=== PATIENT | female | born 1980 | race Two or more races ===

== ENCOUNTER 2016-11-13 15:55 | Emergency (ER) | payer SELFPAY ==
[2016-11-13 16:01] VITALS: BP 124/84; PULSE 74; RESP 19; TEMP 97.9; O2SAT 99
[2016-11-13] MEDS ORDERED: Absorbable Gelatin Sponge Size 12-7 ONE (16:20)
--- NOTE | 2016-11-13 16:48 | ED PDOC ---
HPI: General Adult Time Seen by Provider: 11/13/16 16:38 Chief Complaint (Nursing): Abnormal Skin Integrity Chief Complaint (Provider): Abnormal Skin Integtrity History Per: Patient History/Exam Limitations: no limitations Additional Complaint(s): Pamela Munoz is a 36 year old female with no past medical history who presents to the ED with a chief complaint of a cut sustained on the thumb of her left. Reports first DIP using a veggie hillary to cut squash. Denies any active bleeding, pain or tingling. Patient was seen at urgent care but was advised to refer to the ED. Of note, patient believes her Tetanus is up to date. Past Medical History Reviewed: Historical Data, Nursing Documentation, Vital Signs Vital Signs: Last Vital Signs Temp 97.9 F 11/13/16 15:59 Pulse 74 11/13/16 15:59 Resp 19 11/13/16 15:59 BP 124/84 11/13/16 15:59 Pulse Ox 99 11/13/16 17:07 - Medical History PMH: No Chronic Diseases - Surgical History Surgical History: No Surg Hx - Family History Family History: States: Unknown Family Hx - Allergies Allergies/Adverse Reactions: Allergies Allergy/AdvReac Type Severity Reaction Status Date / Time No Known Allergies Allergy Verified 11/13/16 15:58 Review of Systems ROS Statement: Except As Marked, All Systems Reviewed And Found Negative Musculoskeletal: Negative for: Hand Pain (No pain on finger. No tingling.) Skin: Positive for: Lesions (On thumb of left hand.) Physical Exam - Reviewed Nursing Documentation Reviewed: Yes Vital Signs Reviewed: Yes - Physical Exam Appears: Positive for: Well, Non-toxic, No Acute Distress Head Exam: Positive for: ATRAUMATIC, NORMAL INSPECTION, NORMOCEPHALIC Skin: Positive for: Normal Color Eye Exam: Positive for: Normal appearance ENT: Positive for: Normal ENT Inspection Cardiovascular/Chest: Positive for: Regular Rate, Rhythm. Negative for: Murmur , Tachycardia Respiratory: Positive for: Normal Breath Sounds. Negative for: Wheezing, Respiratory Distress Extremity: Positive for: Normal ROM (Full range of motion on left hand. No pain. No tingling.), Capillary Refill (Good capillary refill.), Other (Gel foam placed on lesion prior to arrival. Bleeding has subsided. No active bleeding.) Neurologic/Psych: Positive for: Alert, Oriented - ECG O2 Sat by Pulse Oximetry: 99 (RA) Pulse Ox Interpretation: Normal Medical Decision Making Medical Decision Makin: Initial Impression: 36 year old female with a cut sustained on her finger. Initial Plan: * Gel applied to sub-secure the gel foam. * Area cleaned Patient declined Tetanus booster today. Patient was advised to not move gel foam or it will fall off'; Otherwise stable. Patient will follow up with primary medical doctor. Scribe Attestation: Documented by Cassidy Wilson acting as a scribe for Fadumo Slater PA-C. Provider Scribe Attestation: All medical record entries made by the Scribe were at my direction and personally dictated by me. I have reviewed the chart and agree that the record accurately reflects my personal performance of the history, physical exam, medical decision making, and the department course for this patient. I have also personally directed, reviewed, and agree with the discharge instructions and disposition. Disposition - Clinical Impression Clinical Impression: Avulsion, skin - Patient ED Disposition Is Patient to be Admitted: No Counseled Patient/Family Regarding: Diagnosis, Need For Followup - Disposition Disposition: Routine/Home Disposition Time: 14:16 Condition: STABLE Instructions: Skin Avulsion (ED)
== END 2016-11-13 16:38 | disposition home or self-care (01) ==
LOC: H.ER 15:55
DX: S61.012A Laceration without foreign body of left thumb without damage to nail, initial encounter (principal); W26.8XXA Contact with other sharp object(s), not elsewhere classified, initial encounter; Y92.89 Other specified places as the place of occurrence of the external cause